=== PATIENT | male | born 1995 | race Caucasian/White ===

== ENCOUNTER 2018-09-13 07:23 | Emergency (ER) | payer OTHER ==
[2018-09-13 07:28] VITALS: BP 107/72
[2018-09-13] MEDS ORDERED: LIDOCAINE 1% INJ-PF (10 MG/ML) 30 ML SDV INJ ONE (08:12)
--- NOTE | 2018-09-13 08:18 | ER Document Report ---
HPI - HPI Time Seen by Provider: 09/13/18 08:05 Pain Level: 2 Notes: Patient is a 22-year-old male with no significant past medical history presents emergency department complaining of an abscess to his left buttock area that is been there for about 5 days. Patient states that he has noticed some purulent discharge. He is eating and drinking without difficulty. He is urinating normally and having normal bowel movements. He has not had an incident like this in the past. No other concerns or complaints. Pain does not radiate. Denies any headache, fever, neck pain, URI, sore throat, chest pain, palpitations, syncope, cough, shortness of breath, wheeze, dyspnea, abdominal pain, nausea/vomiting/diarrhea, urinary retention, dysuria, hematuria. - ROS Systems Reviewed and Negative: Yes All other systems reviewed and negative Past Medical History - Social History Smoking Status: Current Every Day Smoker Family History: Reviewed & Not Pertinent Vertical Provider Document - CONSTITUTIONAL Agree With Documented VS: Yes Notes: PHYSICAL EXAMINATION: GENERAL: Well-appearing, well-nourished and in no acute distress. LUNGS: Breath sounds clear to auscultation bilaterally and equal. No wheezes rales or rhonchi. HEART: Regular rate and rhythm without murmurs, rubs, gallops. ABDOMEN: Soft, nontender, nondistended abdomen. No guarding, no rebound. No masses appreciated. Normal bowel sounds present. No CVA tenderness bilaterally . Buttock: there is an abscess with copious purulence actively draining with a foul odor. Appears to be a pilonidal favoring the left side of midline, but draining actively most likely from a pit at the midline. + erythema, induration, tenderness. No streaks. No obvious involvement of the anus. Musculoskeletal: FROM to passive/active. Strength 5+/5. Extremities: No cyanosis, clubbing, or edema b/l. Peripheral pulses 2+. Capillary refill less than 3 seconds. NEUROLOGICAL: Normal speech, normal gait. PSYCH: Normal mood, normal affect. SKIN: see above. Course - Re-evaluation Re-evalutation: 09/13/18 08:35 Patient is an afebrile, well-hydrated, 22-year-old male who presents emergency department with a pilonidal abscess. Vitals are acceptable. PE is otherwise unremarkable. Incision and drainage was performed successfully without any complications and packing was placed. Wound culture was obtained. Patient is nontoxic-appearing and is tolerating p.o. without difficulty. Wound dressing applied and wound instructions reviewed. No further labs or imaging warranted. Low suspicion for any sepsis, perirectal abscess, meningitis, necrotizing fasciitis, or other systemic emergent condition at this time. Patient to recheck with his PCM in 2-3 days. Schedule appointment with a general surgeon. Return to the ED with any other worsening/concerning symptoms as reviewed. Patient is in agreement. - Vital Signs Vital signs: Temp Pulse Resp BP Pulse Ox 99.6 F 89 18 107/72 96 09/13/18 07:28 09/13/18 07:28 09/13/18 07:28 09/13/18 07:28 09/13/18 07:28 Procedures - Incision and Drainage Left Buttock Time completed: 08:35 Type: Simple Anesthetic type: 1% Lidocaine mL's of anesthetic: 8 Blade size: 11 I&D procedure: Iodoform packing placed, Sterile dressing applied, Other - chlorhexadine/saline Incision Method: Incision made by scalpel Amount/type of drainage: copious purulence Discharge - Discharge Clinical Impression: Pilonidal abscess Condition: Stable Disposition: HOME, SELF-CARE Instructions: Post Incision and Drainage, Trimethoprim-Sulfa ([facility]), Cephalexin ([facility]) Additional Instructions: Do not shower or bathe for 24 hours. After 24 hours you may shower but no submersion of the wound under water. Keep the original dressing on the wound for 24 hours unless the drainage soaks through. Change the dressing daily thereafter and use a small amount of triple antibiotic ointment over the open wound. See your PCM in 2-3 days for recheck and continue direction for wound packing. Monitor for any signs of worsening pain or redness, streaks, and/or fever. Return to the ED if noticing any of the above symptoms or as needed. Take medications as directed. Schedule an appointment with general surgery. Prescriptions: Cephalexin Monohydrate [Keflex 500 mg Capsule] 500 mg PO TID #30 capsule Sulfamethoxazole/Trimethoprim [Bactrim Ds Tablet] 1 each PO BID #20 tablet Referrals: CUONG HUYNH MD [ACTIVE STAFF] - Follow up in 1 week
== END 2018-09-13 09:03 | disposition home or self-care (01) ==
LOC: ER 07:23
PROC: 0HB8XZZ Excision of Buttock Skin, External Approach (ICD-10-PCS; principal; 2018-09-13)
DX: L02.31 Cutaneous abscess of buttock (principal); L05.01 Pilonidal cyst with abscess
CPT/HCPCS: 99283; 87070; 87205; 87075; 87077; 11770; A6266